=== PATIENT | female | born 1990 | race Caucasian/White ===

== ENCOUNTER → 2018-02-25 13:13 | Outpatient (CLI) | payer OTHER, MEDICAID, SELFPAY ==
[2018-02-25 13:53] LABS: Add Manual Diff / Slide Review NO; Basophils Percent Auto 0.4 % (0-2); Eosinophils Percent Auto 0.9 % (2-4); Hematocrit 35.1 % (36-46); Lymphocytes Percent Auto 22.5 % (25-40); Mean Corpuscular HGB Conc 34.2 % (30-36); Mean Corpuscular Hemoglobin 28.3 PG (26-34); Mean Corpuscular Volume 82.6 fL (80-100); Monocytes Percent Auto 8.4 % (3-14); Neutrophils Absolute Auto 4200 /uL (3000-5900); Neutrophils Percent Auto 67.8 % (50-75); Platelet Count 302 X10^3/uL (150-400); Red Blood Cell Count 4.25 X10^6/uL (4.0-5.2); White Blood Cell Count 6.2 X10^3/uL (4.5-11.0)
[2018-02-25 16:01] LABS: Hepatitis B Surface Antigen NEGATIVE s/c (NEGATIVE); Rubella Antibody IgG 10.8 IU/mL (>15)
[2018-02-25 16:09] LABS: HIV 1 and 2 Antibody NEGATIVE (NEGATIVE); Hep C Virus Ab w/Reflex Quant NEGATIVE s/c (NEGATIVE)
[2018-03-01 15:01] LABS: HSV 2 IGG AB 8.76 index (< 0.90); HSV1IGG < 0.90 index (< 0.90)
[2018-03-01 15:02] LABS: Varicella IgG Antibody < 135.00 Index (< 135.00)
[2018-03-07 09:11] LABS: Rapid Plasma Reagin NON REACTIVE
== END ==
PROVIDERS: Visit Provider Obstetrics & Gynecology
DX: O26.92 Pregnancy related conditions, unspecified, second trimester (principal); Z34.82 Encounter for supervision of other normal pregnancy, second trimester
CPT/HCPCS: 36415; 80055; 86695; 86696; 86703; 86787; 86803; 86850; 86900; 86901

== ENCOUNTER → 2018-06-16 14:47 | Outpatient (CLI) | payer OTHER, MEDICAID, SELFPAY ==
[2018-06-16 16:08] LABS: Hematocrit 28.1 % (36-46); Hemoglobin 9.1 g/dL (12.0-16.0)
[2018-06-16 16:36] LABS: GTT (PREG) 1 Hour PP 50gm Dose 84 mg/dL (76-139)
== END ==
PROVIDERS: Visit Provider Obstetrics & Gynecology
DX: Z34.82 Encounter for supervision of other normal pregnancy, second trimester (principal)
CPT/HCPCS: 36415; 82950; 85014; 85018

== ENCOUNTER → 2018-07-12 16:40 | Outpatient (CLI) | payer OTHER, MEDICAID, SELFPAY ==
--- NOTE | 2018-07-12 16:43 | DI.US.S_ITS ---
PROCEDURE: US OB >= 14 WEEKS FETUS INDICATIONS: ANATOMIC SURVEY 20 WEEK OUTSIDE/PRIOR DATING DATA: Last menstrual period (LMP): Not provided. LMP-based estimated date of delivery (BRANDIN): N./A.. First dating scan (date and location): 02/25/18. Estimated date of delivery (BRANDIN) from first dating scan: 09/06/18 TECHNIQUE: Real-time scanning was performed of the fetus, with image documentation and biometric measurements. Endovaginal scanning: No COMPARISON: [facility], , OB <= 14 WEEKS FETUS, 02/25/2018, 13:55. FINDINGS: General: A single living intrauterine gestation is present. Presentation: Vertex. Placenta: Placental position is anterior, without previa. Amniotic fluid index: 11.5 cm, normal range is 5-24 cm. heart rate: 153 beats per minute. Maternal cervical canal: 4.2 cm long. Normal lower limit is 2.5 cm. biometrics: Biparietal diameter: 33 weeks 3 days Head circumference: 34 weeks 5 days Abdominal circumference: 33 weeks 1 day Femur length: 32 weeks 4 days Estimated gestational age from initial scan: 32 weeks Composite gestational age from present scan: 33 weeks Estimated weight and percentile: 2127 g; 76 percentile Measurement variability for biometric dating: +/- 7 days from 14 weeks to 15 weeks 6 days gestation, +/- 10 days from 16 weeks to 21 weeks 6 days gestation, +/- 2 weeks from 22 weeks to 27 weeks 6 days gestation, +/- 3 weeks for 28 weeks gestation or later. weight reference: 4500 g or EFW >90/95% is considered macrosomia or large for gestational age. EFW <10% is small for gestational age. EFW 5% or less is considered intra-uterine growth restriction. Anatomic survey: Neuro: Ventricles are non-dilated at less than 10 mm. Cisterna magna is normal at 3-11 mm. Cerebellum is normal in size and morphology. Nuchal skin fold: Normal at less than 6 mm between 14-21 weeks gestational age. Face: Nose and lips, facial profile are normal. Spine: Not well-visualized. Heart: 4-chambered heart is present, with normal ventricular outflow tracts. Solitary left ventricular intracardiac focus. Diaphragm: Diaphragm is intact. Stomach: Left-sided stomach is present. Kidneys: No hydronephrosis. Normal is less than 5 mm in 2nd trimester, less than 7 mm in 3rd trimester. Cord: Not well-visualized. Bladder: Normal in size. Extremities: Lower extremity is not well-visualized. IMPRESSION: 1. Single living IUP redemonstrated and interval growth is normal. 2. Echogenic intracardiac focus: 1.4-1.8 fold likelihood of Down syndrome. If isolated finding, consider aneuploidy screening with cell-free DNA. If aneuploidy screen is negative, no further evaluation needed. 3. spine, cord insertion site and lower extremities not well-visualized. Followup recommended. Dictated by: Praveen BRUSH Interpreted: Alyssa Lundberg MD on 07/13/2018 at 8:05 Approved by: Alyssa Lundberg MD, PhD on 07/13/2018 at 14:36
== END ==
PROVIDERS: Visit Provider Obstetrics & Gynecology
DX: Z36.89 Encounter for other specified antenatal screening (principal); Z3A.33 33 weeks gestation of pregnancy
CPT/HCPCS: 76811

== ENCOUNTER → 2018-07-22 15:11 | Outpatient (CLI) | payer OTHER, MEDICAID, SELFPAY ==
[2018-08-02 08:36] LABS: Informaseq SEE SEPERATE REPORT
== END ==
PROVIDERS: Visit Provider Obstetrics & Gynecology
DX: Q90.9 Down syndrome, unspecified (principal); O28.3 Abnormal ultrasonic finding on antenatal screening of mother
CPT/HCPCS: 81507

== ENCOUNTER 2018-08-26 12:37 | Outpatient (CLI) | payer OTHER, MEDICAID, SELFPAY ==
[2018-08-26 13:04] LABS: Urine Amphetamines Negative (Negative); Urine Barbiturates Negative (Negative); Urine Benzodiazepines Positive (Negative); Urine Cocaine Negative (Negative); Urine MDMA Negative (Negative); Urine Methadone Negative (Negative); Urine Methamphetamines Negative (Negative); Urine Morphine/Opi cutoff 2000 Negative (Negative); Urine Oxycodone Negative (Negative); Urine Phencyclidine Negative (Negative); Urine Tetrahydrocannabinol Positive (Negative); Urine Tricyclic Antidepressant Negative (Negative)
== END 2018-08-26 14:10 | disposition home or self-care (01) ==
LOC: LABOR 14:17 → OB 08-29 10:04
PROVIDERS: Visit Provider Obstetrics & Gynecology
DX: Z34.90 Encounter for supervision of normal pregnancy, unspecified, unspecified trimester (principal)
CPT/HCPCS: 59025; 80305; G0378; G0379

== ENCOUNTER 2018-08-26 14:48 | Inpatient (IN) | payer OTHER, MEDICAID, SELFPAY ==
[2018-08-26 16:18] LABS: Add Manual Diff / Slide Review NO; Basophils Absolute Auto 0 /uL (0-100); Basophils Percent Auto 0.5 % (0-2); Eosinophils Absolute Auto 100 /uL (0-450); Eosinophils Percent Auto 1.8 % (2-4); Hematocrit 32.1 % (36-46); Hemoglobin 10.4 g/dL (12.0-16.0); Lymphocytes Absolute Auto 1900 /uL (1100-4500); Lymphocytes Percent Auto 24.1 % (25-40); Mean Corpuscular HGB Conc 32.5 % (30-36); Mean Corpuscular Hemoglobin 26.2 PG (26-34); Mean Corpuscular Volume 80.8 fL (80-100); Monocytes Absolute Auto 700 /uL (0-900); Monocytes Percent Auto 9.2 % (3-14); Neutrophils Absolute Auto 5000 /uL (1500-7000); Neutrophils Percent Auto 64.4 % (50-75); Platelet Count 280 X10^3/uL (150-400); Red Blood Cell Count 3.97 X10^6/uL (4.0-5.2); Red Cell Distribution Width 26.5 % (11.6-14.8); White Blood Cell Count 7.8 X10^3/uL (4.5-11.0)
[2018-08-26 16:46] LABS: Macrocytosis 1+; Polychromasia 1+
--- NOTE | 2018-08-26 16:47 | P.HPOB_ITS ---
OB HPI Date/Time Date of admission: 08/26/18 Date Patient Seen: 08/26/18 Time Patient Seen: 16:39 History of Present Condition Chief complaint: OBS : 6 Para: 3 Estimated Date of Delivery: 09/06/18 Estimated Gestational Age (weeks): 38 Narrative: Ashlie Lemus is a 27 year old female admitted in labor History of Present care: limited care (pt was admitted to a rehab unit), initiated at week # (12) and number of visits (5) Dating criteria: LMP confirmed by 1st trimester US Ultrasounds: abnormal US findings (intra cardiac focus) Obstetrical complications: none Medical complications: none Preadmission Labs Blood type: B (+) positive -: Antibody screen: negative, GBS status: negative, HBsAG: negative, HIV: negative, HSV 1: negative, HSV 2: positive and RPR/VDLR: negative -: Chlamydia screen: not detected and Gonorrhea screen: not detected -: Rubella: not immune and Varicella: not immune HCAB: negative Cell-free DNA: Normal 1 hr GTT: 84 Prior (ies) History: 10/09 female 7.7 9/ male 7.4 2/ male 7.4 Evaluation Evaluation Baseline heart rate: 135 Variability: Moderate (11-25) monitor accelerations: Present monitor decelerations: Absent Contraction Frequency (minutes): 3 Uterine Contraction Intensity: Moderate Category of Tracing: I Cervical dilation (cm): 6 Cervical effacement (%): 90 station: -2 Laboratory results: Laboratory Tests 08/26/18 15:30 WBC 7.8 RBC 3.97 L Hgb 10.4 L Hct 32.1 L MCV 80.8 MCH 26.2 MCHC 32.5 RDW 26.5 H Plt Count 280 Neut % (Auto) 64.4 Lymph % (Auto) 24.1 L [place] % (Auto) 9.2 Eos % (Auto) 1.8 L Baso % (Auto) 0.5 Neut # (Auto) 5000 Lymph # (Auto) 1900 [place] # (Auto) 700 Eos # (Auto) 100 Baso # (Auto) 0 Meds Home Medications Medication Instructions Recorded Confirmed Type sertraline [Zoloft] 50 mg PO QDAY #30 tab 03/06/16 Rx ibuprofen 600 mg PO Q6HP PRN #30 tab 07/16/16 Rx Allergies Allergy/AdvReac Type Severity Reaction Status Date / Time No Known Drug Allergies Allergy Verified 08/26/18 15:50 Review of Systems Review of Systems Patient denies leaking of fluid. She has contractions. Good movement. No signs or symptoms of preeclampsia. Patient denies symptoms of HSV All systems reviewed & are unremarkable except as noted in HPI and below Exam Vital Signs (past 8 hours): Blood pressure 128/58, temperature 97.6?, pulse 90 Narrative Exam Narrative: HEENT exam within normal limits. Lungs are clear to auscultation and percussion. Heart is regular rate and rhythm no S3-S4 or murmurs. Abdomen is soft, nontender. Abdomen is gravid. is vertex. Extremities without edema and nontender. Objective Labs Result Diagrams: 08/26/18 15:30 Labs: Laboratory Results - last 24 hr 08/26/18 15:30 WBC 7.8 RBC 3.97 L Hgb 10.4 L Hct 32.1 L MCV 80.8 MCH 26.2 MCHC 32.5 RDW 26.5 H Plt Count 280 Neut % (Auto) 64.4 Lymph % (Auto) 24.1 L [place]assen % (Auto) 9.2 Eos % (Auto) 1.8 L Baso % (Auto) 0.5 Neut # (Auto) 5000 Lymph # (Auto) 1900 [place] # (Auto) 700 Eos # (Auto) 100 Baso # (Auto) 0 Assessment and Plan Assessment and Plan Assessment and Plan narrative: 38 week gestation in a labor. Anticipate vaginal delivery
--- NOTE | 2018-08-26 17:12 | PM.OBPNLAB ---
Date/Time Date Patient Seen: 08/26/18 Time Patient Seen: 17:12 Pain Control Pain control: epidural Pelvic Exam Dilation (cm): 7 Effacement (%): 90 station: -2 Comments: AROMed thick meconium, no evidence of HSV outbreak Contractions Contraction intensity: Moderate Assessment and Plan Assessment: active labor
[2018-08-26 17:33] VITALS: BP 127/57
--- NOTE | 2018-08-26 19:03 | PM.OBPRVD ---
Delivery date: 08/26/18 Intrapartal events: None Cervical ripening method: none Delivery augmentation: pitocin Delivery monitor: external FHT and external uterine Route of delivery: L&D Laceration Description: None Estimated blood loss (mL): 100 Anesthesia type: Epidural Narrative: Patient arrived on Labor and delivery 6 cm dilated with contractions. She received Pitocin augmentation and an epidural catheter for pain control. She was AROMed for meconium-stained fluid. heart tones category 1 throughout labor. The patient delivered spontaneously over an intact perineum. The viable female infant was placed on maternal abdomen. After the cord stopped pulsating the cord was clamped, cut, and cord bloods obtained. the placenta delivered spontaneously, intact, with 3 vessels. There were no cervical, vaginal, or perineal tears. Both infant and mother doing well. [place] Baby 1: Infant gender: Female Presentation: vertex position: Right Occiput Anterior Placenta delivery description: Spontaneous cord vessel description: 3 Vessels score (1 min): 8 score (5 min): 9 Plan for aftercare: Routine care.
[2018-08-26] MEDS: IBUPROFEN 600 MG TABLET PO (23:02)
[2018-08-27 06:18] LABS: Basophils Absolute Auto 0 /uL (0-100); Basophils Percent Auto 0.3 % (0-2); Eosinophils Absolute Auto 200 /uL (0-450); Eosinophils Percent Auto 1.7 % (2-4); Hematocrit 29.5 % (36-46); Hemoglobin 9.7 g/dL (12.0-16.0); Lymphocytes Absolute Auto 2700 /uL (1100-4500); Lymphocytes Percent Auto 27.1 % (25-40); Mean Corpuscular Hemoglobin 26.9 PG (26-34); Mean Corpuscular Volume 81.4 fL (80-100); Monocytes Absolute Auto 1000 /uL (0-900); Monocytes Percent Auto 9.6 % (3-14); Neutrophils Absolute Auto 6200 /uL (1500-7000); Neutrophils Percent Auto 61.3 % (50-75); Platelet Count 202 X10^3/uL (150-400); Red Blood Cell Count 3.62 X10^6/uL (4.0-5.2)
[2018-08-27 06:32] LABS: Add Manual Diff / Slide Review SLIDE REVIEW
[2018-08-27 07:37] LABS: Anisocytosis 2+
[2018-08-27] MEDS: PRENATAL VIT,CALC/IRON/FOLIC 1 TABLET 1 TAB PO (08:28)
[2018-08-27] MEDS: FERROUS GLUCONATE 324 MG TABLET PO (08:28)
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
[2018-08-27] MEDS: IBUPROFEN 600 MG TABLET PO ×3 (09:26→21:55)
--- NOTE | 2018-08-27 15:24 | CM.SWNOTE ---
Social Work Note: Requested by Dr Alvarado to complete a social work consult for this 27 yo mom and baby boy Allan, born [birth year]. This GRATING MACHINE OPERATOR unable to assess today, but CPS report placed based on chart review and information provided by Dr Alvarado. JAILYN Snowden updated throughout the day. Report to w/e CPS line P# included this information; 27 yo mom Ashlie presents to for delivery by Dr Keenan, w/limited care and positive meth screen 3.14.19. Ashlie + for THC and Benzos upon presentation here. Ashlie has 3 other children, all w/ CPS involvement and open cases per Dr Alvarado. Ashlie lives w/maternal gma to these children, gma has custody. MONAE is in alf in [place], [place]. Baby's Meconium has been sent, results will not be back until next week, per Dr Alvarado. Baby boy is showing no signs or symptoms of w/d at this time. According to Sammy Monroy w/ CPS, Intake # [id number], this report will not screen in at this time, meaning report does not warrant immediate f/u from CPS. This GRATING MACHINE OPERATOR asks what support is available to this baby's physician, who has placed baby on a medical hold, and does not feel it is safe for baby to DC w/ mom w/o CPS support ? Sammy suggests another call to [facility] or [place] CPS office to inquire further about social work support OR it's possible after additional digging is performed, Ashlie and baby boy might screen in d/t prior CPS history. Relayed above to JAILYN Snowden. This GRATING MACHINE OPERATOR following over the w/e and will address above w/ Dr Alvarado Wednesday. Will also plan to assess safety plan for baby boy w/ mom and family. GENIE Watson
[2018-08-28] MEDS: IBUPROFEN 600 MG TABLET PO (05:52)
[2018-08-28] MEDS: DOCUSATE 250 MG CAPSULE PO (09:45)
[2018-08-28] MEDS: PRENATAL VIT,CALC/IRON/FOLIC 1 TABLET 1 TAB PO (09:45)
[2018-08-28] MEDS: FERROUS GLUCONATE 324 MG TABLET PO (09:48)
--- NOTE | 2018-08-28 10:37 | PM.OBDS.1 ---
Discharge Providers Date of admission: 08/26/18 14:48 Discharge Date: 08/28/18 Consults: 08/26/18 17:36 Consult to Respiratory Therapy Evaluate & Treat Comment: Physician Instructions: Evaluate and treat 08/26/18 22:29 Consult to Nickel Plant Operator Routine Comment: Consult to Doughnut Icer Machine Routine Comment: Discharge provider: Mari Keenan MD Summary Date Patient Seen: 08/28/18 Time Patient Seen: 10:37 Procedures: Epidural catheter, Pitocin augmentation of labor, vaginal delivery Hospital Course: Patient arrived on Labor and delivery in active labor. She had a spontaneous delivery of a viable female infant weighing 7 lb 12 oz. Both infant and mother did well . Due to the patient's history of drug use during disposition of the baby is waiting on CPS evaluation. Patient denies any signs or symptoms of preeclampsia. Blood pressure 128/75, pulse 98, temperature 98.3?. Abdomen is soft, nontender. Uterus is firm, at U, nontender. mild lochia. Extremities without edema nontender. Blood type is B positive and she is rubella nonimmune she will receive rubella vaccination prior to discharge. Peripartum Data Delivery Method: Natural Vaginal Laceration description: None Procedures: Epidural catheter, Pitocin augmentation of labor, vaginal delivery complications: none [place] 1: Gender: Female Disposition of : home Discharge Diagnosis (1) Spontaneous vaginal delivery: Status: Acute Problem Details: Routine care (2) Drug use during : Status: Acute Problem Details: CPS to be involved Status at Discharge Cognitive/behavioral status at discharge: oriented Overall status at discharge: patient is progressing back to baseline Time Spent with Patient Total time spent providing and/or coordinating discharge services: Less than 30 minutes Objective Labs Result Diagrams: 08/27/18 05:49 Discharge Plan Discharge Plan Patient Disposition: Home Discharge Med Rec/Prescriptions Prescriptions: New ibuprofen 600 mg Tablet 600 mg PO Q6HR PRN (Reason: Pain, Mild (1-3)) Qty: 30 RF: 0 docusate sodium 250 mg Capsule 250 mg PO DAILY Qty: 20 RF: 0 ferrous gluconate 324 mg (38 mg iron) Tablet 324 mg PO DAILY Qty: 60 RF: 0 Continued sertraline [Zoloft] 50 MG tablet 50 mg PO QDAY Qty: 30 RF: 3 Follow up/Referrals: Foist,Mari B, MD [Physician] - 1 Month ( exam, with me or Dr. Miller) Provider Discharge Instructions Diet: Regular Activity: nothing in vagina for 4 weeks Skin/Wound/Dressing Care Report to your healthcare provider any signs of infection, such as:: chills, fever and increased pain Discharge Data Attending Provider: Allyssa Miller Admit Date/Time: 08/26/18 14:48
[2018-08-28 11:48] VITALS: BP 127/57; PULSE 80; TEMP 36.4
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
== END 2018-08-28 11:30 | disposition home or self-care (01) | DRG 560 ==
PROVIDERS: Specialist; Admitting Provider Obstetrics & Gynecology; Visit Provider Obstetrics & Gynecology
DX: O77.0 Labor and delivery complicated by meconium in amniotic fluid (principal); Z3A.38 38 weeks gestation of pregnancy; Z37.0 Single live birth
CPT/HCPCS: 01967; 36415; 59025; 59050; 59409; 80305; 85025; 86850; 86900; 86901; G0379; J3010

== ENCOUNTER 2018-11-28 09:23 | Day surgery (SDC) | payer OTHER, MEDICAID, SELFPAY ==
[2018-11-11 10:26] VITALS: BMI 40.1
[2018-11-28] VITALS (11 sets, daily range): BP systolic 112–131; BP diastolic 58–75; PULSE 56–90; RESP 14–20; TEMP 36.3–36.7; O2SAT 96–100; BMI 40.1
[2018-11-28] MEDS: LACTATED RINGERS 1,000 ML 100 ML IV (09:53)
--- NOTE | 2018-11-28 10:45 | PM.HP.1 ---
History of Present Illness Date Patient Seen: 11/28/18 Time Patient Seen: 10:45 Chief complaint: 12331 Narrative: Patient is a 27-year-old 6 para 4 who presents for laparoscopic bilateral tubal ligation for permanent sterilization Patient History Social History household members: none Smoking Status: Smoker, status unknown Family & Social History Social History: household members none Tobacco & Substance use: Tobacco type cannabis/marijuana Smoking Status Smoker, status unknown Substance Use Type marijuana,methamphetamine Meds Home Medications Medication Instructions Recorded Confirmed Type ferrous gluconate 324 mg PO DAILY #60 tab 08/28/18 Rx sertraline 100 mg tablet 150 mg PO DAILY #45 tab 10/11/18 Rx aripiprazole 2 mg tablet 2 mg PO DAILY #30 tab 10/26/18 Rx hydroxyzine HCl 50 mg tablet 50 mg PO QID PRN 10/26/18 10/26/18 History Allergies Allergy/AdvReac Type Severity Reaction Status Date / Time No Known Drug Allergies Allergy Verified 08/26/18 15:50 Exam Vital Signs (past 8 hours): - 11/28/18 09:38 Temperature 97.3 F L Pulse Rate 64 Respiratory Rate 16 Blood Pressure 112/70 Pulse Oximetry 97 Oxygen Delivery Method Room Air Narrative Exam Narrative: HEENT: No thyromegaly, no anterior cervical or supraclavicular lymphadenopathy. Lungs:Clear to auscultation bilaterally, no wheezes. Cardiovascular: Regular rate and rhythm, no murmurs, rubs, or gallops. Abdomen: No scars. No hepatosplenomegaly. No masses palpable. External genitalia: Normal Vagina: Normal Cervix: Normal Bimanual exam: 6 Week size uterus. Mobile. Rectal: No masses. Assessment & Plan Assessment & Plan narrative: Assessment 27-year-old 6 para 4 desires permanent sterilization Plan: Laparoscopic bilateral tubal ligation with electrocautery The risks, benefits, and alternatives to the procedure were explained to the patient. The risks including bleeding, infection, injury to the bowel, bladder, or ureters. She understands these risks and agrees to proceed. A full par Q was held and consent form was signed Time Spent With Patient Time with patient: 15-24 minutes
--- NOTE | 2018-11-28 10:47 | PM.PREOP ---
Pre-operative Note Interval Note History & Physical reviewed/Exam performed by Physician: Yes Changes to H&P: No
--- NOTE | 2018-11-28 11:36 | SUR.OPER ---
Lithotomy on padded OR bed, head on pillow, arms secured on padded arm boards at <90 degrees abduction. Legs secured in padded yellow fins stirrups.
[2018-11-28] MEDS: BUPIVACAINE 0.5% W/ EPI (PF) VIAL 10 ML INJ (11:43)
[2018-11-28] MEDS: fentaNYL 100 MCG/2 ML INJ 25 MCG IV (12:14)
[2018-11-28] MEDS: HYDROCODONE/ACET 5/325 TABLET 1 TAB PO (12:17)
--- NOTE | 2018-11-28 21:18 | PM.GYNOP.1 ---
Operative Date/Time/Diagnoses Date of procedure: 11/28/18 Time of procedure: 11:30 Pre-op diagnosis: Desires permanent sterilization Post-op diagnosis: same Procedure: Procedures Operation Date: 11/28/18 10:45 Actual Procedures Side Surgeon p Laparoscopic Tubal Ligation with electrocautery Bilateral Allyssa Miller MD Indications: Multiparity Desires permanent sterilization Surgeon: Allyssa Miller Anesthesia Type: General Operative Notes Findings: Six week size anteverted uterus Normal tubes and ovaries Appendix not visualized Normal liver gallbladder Closure Type: primary Specimen(s): none Estimated blood loss (mL): 5 Blood products transfused: none Procedure in detail: After informed consent was obtained, the patient was taken to the operating room where she was placed in the dorsal supine position. After adequate general endotracheal anesthesia was achieved, she was placed in the dorsal lithotomy position, and prepped and draped in the usual sterile fashion. A time-out was performed. A bivalve speculum was placed into the vagina and the anterior lip of the cervix was grasped with a single-tooth tenaculum. The cervical os was sequentially dilated until the Zumi uterine manipulator could pass easily into the endometrial cavity. The single-tooth tenaculum was removed from the anterior lip of the cervix. The bivalve speculum was removed from the vagina. Attention was then turned to the abdomen where 6 cc of 0.5% Marcaine with epinephrine were injected in the umbilical fold. A 1 cm incision was made. The Veress needle was placed into the peritoneal cavity, and its placement confirmed by aspiration and drop test. The abdominal cavity was insufflated with 3.2 L of CO2. The Veress needle was removed, and a 12 mm trocar was placed without difficulty. The operative laparoscopic was placed through the umbilical incision. The tubes and ovaries were identified and were found to be normal. The right tube was carried out to the fimbriated end, 2/[address] to the distal and the tube was cauterized x3 with the Kleppinger. Blanching occurred. This was repeated on the patient's left tube. The liver and gallbladder were examined and were found to be normal. The appendix was not visualized. The instruments were removed from the abdomen. The CO2 was allowed to escape. The incision was repaired on the fascia with 0 Vicryl. The skin incision was closed with 4 0 undyed Vicryl in a subcuticular fashion. Steri-Strips, 2 x 2, and op site were placed over the umbilical incision. The Zumi uterine manipulator was removed from the uterus. Sponge, lap, and instrument counts were correct x2. The patient tolerated the procedure well, and was taken to PACU in stable condition. Complications: none Post-operative Condition: stable Disposition: PACU Plan for aftercare: Home after recovery
== END 2018-11-28 13:00 | disposition home or self-care (01) ==
PROVIDERS: Visit Provider Obstetrics & Gynecology
PROC: (CPT 58671; principal; 2018-11-28 10:45)
DX: Z30.2 Encounter for sterilization (principal)
CPT/HCPCS: 58670; J0330; J1100; J1885; J2250; J2405; J2704; J3010

== ENCOUNTER 2019-03-23 19:45 | Emergency (ER) | payer OTHER, MEDICAID, SELFPAY ==
[2019-03-23] VITALS (7 sets, daily range): BP systolic 106–115; BP diastolic 52–68; PULSE 79–88; RESP 16–20; TEMP 36.4–36.9; O2SAT 97–100
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
[2019-03-23] MEDS: ONDANSETRON 4 MG/2 ML INJ IV (20:09)
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
--- NOTE | 2019-03-23 20:27 | PC.NURSE ---
Pt arrived back from CT/XR with RN. Vitals WNL BP 110/56. Pt refusing to turn on her back, wants to stay on R or L side. reports nauseous. IM zofran given per JUL. No IV access obtained. pt with h/o IVDU and is difficult stick. Attempted multiple times by [address] Villagomez made aware and OK'd no IV at this time. Per Dr Villagomez no labs needed at this time. pt remains in C-collar for c/o cervical spine tenderness when palpated. awaiting results of CT. Friend in room. remains on cardiac monitoring, warmed room with warm blankets.
[2019-03-23] MEDS: HYDROMORPHONE 0.5 MG INJ IV (21:15)
--- NOTE | 2019-03-23 21:17 | PC.NURSE ---
CSpine cleared at 2054. collar removed. IV accessed obtained 20G L hand. unable to obtain blood. Lab called to draw. Pt given pain meds per JUL. Resting in bed with family at side. assisted with bedpan and urine obtained. Warm blankets provided.
[2019-03-23 21:45] LABS: Add Manual Diff / Slide Review NO; Basophils Absolute Auto 100 /uL (0-100); Basophils Percent Auto 0.3 % (0-2); Eosinophils Absolute Auto 100 /uL (0-450); Eosinophils Percent Auto 0.3 % (2-4); Hematocrit 39.5 % (36-46); Hemoglobin 13.4 g/dL (12.0-16.0); Lymphocytes Absolute Auto 1700 /uL (1100-4500); Lymphocytes Percent Auto 8.8 % (25-40); Mean Corpuscular HGB Conc 33.8 % (30-36); Mean Corpuscular Hemoglobin 29.6 PG (26-34); Mean Corpuscular Volume 87.5 fL (80-100); Monocytes Absolute Auto 900 /uL (0-900); Monocytes Percent Auto 4.8 % (3-14); Neutrophils Absolute Auto 16100 /uL (1500-7000); Neutrophils Percent Auto 85.8 % (50-75); Platelet Count 211 X10^3/uL (150-400); Red Blood Cell Count 4.51 X10^6/uL (4.0-5.2); Red Cell Distribution Width 13.3 % (11.6-14.8); White Blood Cell Count 18.8 X10^3/uL (4.5-11.0)
[2019-03-23 21:47] LABS: INR 0.8 (0.9-1.3); Prothrombin Time 9.5 SECONDS (10.1-12.7)
[2019-03-23 21:50] LABS: PTT Partial Thromboplastin Tim 22 SECONDS (26.4-36.2)
[2019-03-23 21:52] LABS: Blood Urea Nitrogen 15 mg/dL (7-17); Carbon Dioxide 32 mmol/L (22-32); Chloride 100 mmol/L (98-107); Estimated Glomerular Filt Rate > 60.0 mL/min (>60); Glucose 105 mg/dL (70-100); HEMOLYSIS 56 (0-50); Potassium 4.2 mmol/L (3.4-5.1); Sodium 141 mmol/L (137-145)
[2019-03-23 21:54] LABS: Pregnancy Test Serum,Qual Negative (Negative)
[2019-03-23] MEDS: HYDROMORPHONE 1 MG INJ IV (22:00)
[2019-03-23] MEDS: LIDOCAINE 1% W/EPI 3 ML SUBCUT (22:01)
== END 2019-03-23 22:23 | disposition short-term general hospital (02) ==
PROVIDERS: Emergency Provider Emergency Medicine
DX: S06.5X0A Traumatic subdural hemorrhage without loss of consciousness, initial encounter (principal); V89.2XXA Person injured in unspecified motor-vehicle accident, traffic, initial encounter
CPT/HCPCS: 12002; 36415; 70450; 71045; 72125; 73630; 80048; 84703; 85025; 85610; 85730; 93041; 96374; 96375; 96376; 99283; 99291; G0390; J1170; J2405

== ENCOUNTER 2019-03-25 19:01 | Emergency (ER) | payer OTHER, MEDICAID, SELFPAY ==
[2019-03-25 19:09] VITALS: BP 132/46; PULSE 64; RESP 16; TEMP 36.4; O2SAT 97; BMI 43.7
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
[2019-03-25] MEDS: ONDANSETRON 4 MG/2 ML INJ IV (19:45)
[2019-03-25] MEDS: ACETAMINOPHEN 325 MG TABLET 975 MG PO (20:08)
--- NOTE | 2019-03-25 20:11 | PC.NURSE ---
Patient medicated with Tylenol and Zofran. Patient is alert and oriented, speaking in full, complete sentences with staff and friend at bedside. Dr. Smith at bedside to discuss plan of care.
[2019-03-25 20:12] LABS: Bacteria Urine None Seen; RBC Urine None Seen (0-5/HPF)
[2019-03-25 20:14] LABS: Add Manual Diff / Slide Review NO; Basophils Absolute Auto 100 /uL (0-100); Basophils Percent Auto 0.8 % (0-2); Eosinophils Absolute Auto 100 /uL (0-450); Eosinophils Percent Auto 1.1 % (2-4); Hematocrit 39.4 % (36-46); Hemoglobin 13.3 g/dL (12.0-16.0); Lymphocytes Absolute Auto 2200 /uL (1100-4500); Lymphocytes Percent Auto 21.7 % (25-40); Mean Corpuscular HGB Conc 33.8 % (30-36); Mean Corpuscular Hemoglobin 29.6 PG (26-34); Mean Corpuscular Volume 87.7 fL (80-100); Monocytes Absolute Auto 700 /uL (0-900); Monocytes Percent Auto 6.6 % (3-14); Neutrophils Absolute Auto 6900 /uL (1500-7000); Neutrophils Percent Auto 69.8 % (50-75); Platelet Count 315 X10^3/uL (150-400); Red Blood Cell Count 4.49 X10^6/uL (4.0-5.2); Red Cell Distribution Width 13.4 % (11.6-14.8); White Blood Cell Count 9.9 X10^3/uL (4.5-11.0)
[2019-03-25 20:18] LABS: Appearance Urine UA CLEAR; Bilirubin Urine UA NEGATIVE (NEGATIVE); Color Urine UA YELLOW; Glucose Urine UA NEGATIVE (Negative); Ketones Urine UA NEGATIVE (NEGATIVE); Leukocyte Esterase Urine UA NEGATIVE (NEGATIVE); Nitrite Urine UA NEGATIVE (Negative); Occult Blood Urine UA NEGATIVE (Negative); Protein Urine UA NEGATIVE (Negative); Specific Gravity Urine UA <=1.005 (1.000-1.035); Urobilinogen Urine UA 0.2 E.U./dL (0.2)
[2019-03-25 20:20] VITALS: BP 110/72; PULSE 56; RESP 16; O2SAT 100
[2019-03-25 20:23] LABS: Blood Urea Nitrogen 4 mg/dL (7-17); Calcium 9.5 mg/dL (8.4-10.2); Carbon Dioxide 29 mmol/L (22-32); Chloride 107 mmol/L (98-107); Estimated Glomerular Filt Rate > 60.0 mL/min (>60); Glucose 107 mg/dL (70-100); HEMOLYSIS < 15 (0-50); Magnesium 2.2 mg/dL (1.6-2.3); Sodium 142 mmol/L (137-145)
[2019-03-25 20:25] LABS: Amorphous Sediment Urine 2+; Culture Indicated Urine Cult Not Indicated; Squamous Epithelial Cell Urine 1-5 /HPF (0-5/HPF); WBC Urine None Seen (0-5/HPF)
--- NOTE | 2019-03-25 20:30 | PC.NURSE ---
Patient drinking apple juice. Nausea resolved at this time. Warm blankets given, light dim. Family at bedside.
[2019-03-25 21:15] VITALS: BP 115/67; PULSE 65; RESP 16; TEMP 36.9; O2SAT 98
[2019-03-25 22:15] VITALS: BP 110/59; PULSE 65; RESP 16; O2SAT 98
[2019-03-25 23:16] VITALS: BP 115/59; PULSE 65; RESP 16; TEMP 36.8; O2SAT 100
--- NOTE | 2019-03-25 23:17 | PC.NURSE ---
Patient resting quietly, mostly sleeping. Mother at bedside. Pt with send out labs that have not resulted yet. Plan of care discussed with Dr. Smith and family. Pt to be admitted.
[2019-03-26 00:40] VITALS: BP 110/64; PULSE 56; RESP 16; TEMP 36.6; O2SAT 98
[2019-03-26 03:47] LABS: Osmolality, Serum 287
[2019-03-26 03:48] LABS: Osmolality Urine 58
== END 2019-03-26 00:41 | disposition home or self-care (01) ==
PROVIDERS: Emergency Provider Emergency Medicine
DX: R63.1 Polydipsia (principal); R51 Headache; S09.90XD Unspecified injury of head, subsequent encounter; V49.40XD Driver injured in collision with unspecified motor vehicles in traffic accident, subsequent encounter
CPT/HCPCS: 36415; 70450; 80048; 81001; 82962; 83735; 83930; 83935; 85025; 96374; 99283; 99284; J2405

== ENCOUNTER → 2019-03-28 16:32 | Outpatient (CLI) | payer OTHER, MEDICAID, SELFPAY ==
[2019-03-28 17:00] LABS: Hemoglobin 12.8 g/dL (12.0-16.0); Mean Corpuscular HGB Conc 33.7 % (30-36); Mean Corpuscular Hemoglobin 29.7 PG (26-34); Mean Corpuscular Volume 88.1 fL (80-100); Platelet Count 349 X10^3/uL (150-400); Red Blood Cell Count 4.31 X10^6/uL (4.0-5.2); Red Cell Distribution Width 13.3 % (11.6-14.8); White Blood Cell Count 8.8 X10^3/uL (4.5-11.0)
[2019-03-28 17:24] LABS: Alanine Aminotransferase 24 IU/L (9-52); Albumin 4.2 g/dL (3.5-5.0); Albumin Globulin Ratio 1.4 (1.0-2.8); Alkaline Phosphatase 64 U/L (38-126); Aspartate Aminotransferase 27 IU/L (14-36); BUN Creatinine Ratio 17.5 (6-22); Bilirubin Total 0.4 mg/dL (0.2-1.3); Blood Urea Nitrogen 7 mg/dL (7-17); Calcium 9.4 mg/dL (8.4-10.2); Carbon Dioxide 31 mmol/L (22-32); Chloride 105 mmol/L (98-107); Estimated Glomerular Filt Rate > 60.0 mL/min (>60); Globulin 3.1 g/dL (1.7-4.1); Glucose 91 mg/dL (70-100); HEMOLYSIS 27 (0-50); Potassium 4.5 mmol/L (3.4-5.1); Sodium 142 mmol/L (137-145); Total Protein 7.3 g/dL (6.3-8.2)
[2019-03-30 16:52] LABS: Osmolality, Serum 292 mosm/kg (260-310)
[2019-03-30 16:53] LABS: Osmolality Urine 102 mOsm/kg (50-1200)
== END ==
PROVIDERS: Family Provider Nurse Practitioner Family; PCP Nurse Practitioner Family; Visit Provider Hospitalist
DX: Z00.00 Encounter for general adult medical examination without abnormal findings (principal); R63.1 Polydipsia
CPT/HCPCS: 36415; 80053; 83930; 83935; 85027

== ENCOUNTER 2019-03-31 18:05 | Emergency (ER) | payer OTHER, MEDICAID, SELFPAY ==
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
[2019-03-31 18:18] VITALS: PULSE 88; RESP 18; TEMP 36.5; O2SAT 98
--- NOTE | 2019-03-31 20:40 | DI.RAD.S_ITS ---
PROCEDURE: XR FOOT LT MIN 3V INDICATIONS: continuing L foot pain, initial xray neg about 8 days ago TECHNIQUE: 3 views of the foot were acquired. COMPARISON: [facility], , XR FOOT LT MIN 3V, 03/23/2019, 20:31. FINDINGS: Bones: No fractures or dislocations. No suspicious bony lesions. Soft tissues: No tibiotalar joint effusion. Achilles tendon appears normal. IMPRESSION: No acute osseous abnormality. Dictated by: Dashawn Matt M.D. on 03/31/2019 at 21:05 Approved by: Dashawn Matt M.D. on 03/31/2019 at 21:05
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
[2019-03-31] MEDS: ACETAMINOPHEN 325 MG TABLET 975 MG PO (21:17)
[2019-03-31] MEDS: ONDANSETRON 4 MG ODT PREPACK 1 BOTTLE MISC (21:48)
[2019-03-31 21:49] VITALS: BP 105/86; PULSE 91; O2SAT 98
== END 2019-03-31 21:51 | disposition home or self-care (01) ==
PROVIDERS: Emergency Provider Nurse Practitioner Family; Family Provider Nurse Practitioner Family; PCP Nurse Practitioner Family
DX: F07.81 Postconcussional syndrome (principal); R07.89 Other chest pain; M79.672 Pain in left foot; R41.3 Other amnesia; R51 Headache
CPT/HCPCS: 29540; 70450; 73630; 99282; 99284

== ENCOUNTER → 2019-04-05 11:44 | Outpatient (CLI) | payer OTHER, MEDICAID, SELFPAY ==
[2019-04-05 11:55] LABS: Bacteria Urine None Seen; WBC Urine None Seen (0-5/HPF)
[2019-04-05 12:35] LABS: Add Manual Diff / Slide Review NO; Basophils Absolute Auto 0 /uL (0-100); Basophils Percent Auto 0.5 % (0-2); Eosinophils Absolute Auto 200 /uL (0-450); Eosinophils Percent Auto 2.6 % (2-4); Hematocrit 38.5 % (36-46); Hemoglobin 12.9 g/dL (12.0-16.0); Lymphocytes Absolute Auto 2800 /uL (1100-4500); Mean Corpuscular HGB Conc 33.4 % (30-36); Mean Corpuscular Hemoglobin 29.8 PG (26-34); Mean Corpuscular Volume 89.1 fL (80-100); Monocytes Absolute Auto 600 /uL (0-900); Monocytes Percent Auto 6.7 % (3-14); Neutrophils Absolute Auto 5700 /uL (1500-7000); Neutrophils Percent Auto 60.2 % (50-75); Platelet Count 352 X10^3/uL (150-400); Red Blood Cell Count 4.32 X10^6/uL (4.0-5.2); Red Cell Distribution Width 14.5 % (11.6-14.8); White Blood Cell Count 9.5 X10^3/uL (4.5-11.0)
[2019-04-05 12:50] LABS: Alanine Aminotransferase 47 IU/L (<35); Albumin 4.7 g/dL (3.5-5.0); Albumin Globulin Ratio 1.4 (1.0-2.8); Alkaline Phosphatase 68 U/L (38-126); Aspartate Aminotransferase 40 IU/L (14-36); Bilirubin Total 0.4 mg/dL (0.2-1.3); Blood Urea Nitrogen 9 mg/dL (7-17); Carbon Dioxide 31 mmol/L (22-32); Chloride 104 mmol/L (98-107); Estimated Glomerular Filt Rate > 60.0 mL/min (>60); Globulin 3.3 g/dL (1.7-4.1); Glucose 92 mg/dL (70-100); HEMOLYSIS < 15 (0-50); Potassium 4.4 mmol/L (3.4-5.1); Sodium 144 mmol/L (137-145)
[2019-04-05 13:03] LABS: Prolactin 8.8 ng/mL (3.0-18.6)
[2019-04-05 13:07] LABS: Appearance Urine UA CLEAR; Bilirubin Urine UA NEGATIVE (NEGATIVE); Color Urine UA YELLOW; Glucose Urine UA NEGATIVE (Negative); Ketones Urine UA NEGATIVE (NEGATIVE); Leukocyte Esterase Urine UA NEGATIVE (NEGATIVE); Nitrite Urine UA NEGATIVE (Negative); Occult Blood Urine UA TRACE-LYSED (Negative); Protein Urine UA NEGATIVE (Negative); Specific Gravity Urine UA <=1.005 (1.000-1.035); Urobilinogen Urine UA 0.2 E.U./dL (0.2)
[2019-04-05 13:14] LABS: Culture Indicated Urine Cult Not Indicated; RBC Urine None Seen (0-5/HPF); Urine Comments Microscopic Normal
[2019-04-05 13:37] LABS: TSH w/ Reflex to FT4 1.56 uIU/mL (0.47-4.68)
[2019-04-07 16:33] LABS: Osmolality, Serum 292 mosm/kg (260-310)
== END ==
PROVIDERS: PCP Nurse Practitioner Family; Visit Provider Nurse Practitioner Family
DX: Z00.00 Encounter for general adult medical examination without abnormal findings (principal); R63.1 Polydipsia
CPT/HCPCS: 36415; 80053; 81001; 83930; 84146; 84443; 85025

== ENCOUNTER → 2019-04-20 16:18 | Outpatient (CLI) | payer OTHER, MEDICAID, SELFPAY ==
--- NOTE | 2019-04-20 16:19 | DI.MRI.S_ITS ---
PROCEDURE: MR BRAIN (PITUITARY) WWO CON INDICATIONS: post concussive symptoms, polydipsia TECHNIQUE: Noncontrast sagittal and axial FLAIR, axial gradient echo, axial diffusion and ADC through the brain. Thin-slice sagittal and coronal T1 spin echo, coronal T2 fast spin echo through the pituitary. After the administration contrast, optional dynamic coronal T1 spin echo, thin-slice coronal and sagittal T1 spin echo images through the pituitary fossa; axial T1 spin echo with fat saturation through the brain. COMPARISON: None. FINDINGS: Image quality: Excellent. Pituitary Gland: There appears to be homogenous symmetric pituitary parenchymal enhancement. No discrete focus of delayed enhancement identified on dynamic post contrast pulse sequences. No deviation of the pituitary stalk. No displacement of the optic chiasm. The cavernous sinuses appear grossly unremarkable. CSF Spaces: Ventricles are normal in size and shape. Basal cisterns are patent. No extra-axial fluid collections. Brain: No intracranial bleeds or mass effects. No abnormal intracranial enhancement. Toussaint-white matter interface is intact. Diffusion weighted images demonstrate no acute ischemic insults. Brainstem is normal. Normal intravascular flow voids are present. There is normal appearance of the internal auditory canals and cerebellopontine angles. No discrete IAC mass. No abnormal enhancement in this region Skull and face: Calvarial marrow is normal in signal. Orbits appear normal. Sinuses: Sinuses and mastoids are clear. IMPRESSION: Negative examination. No evidence of pituitary mass. Normal appearance of the IACs. No abnormal enhancement Dictated by: Sudarshan Bustillo M.D. on 04/21/2019 at 16:06 Approved by: Sudarshan Bustillo M.D. on 04/21/2019 at 16:20
== END ==
PROVIDERS: PCP Nurse Practitioner Family; Visit Provider Nurse Practitioner Family
DX: F07.81 Postconcussional syndrome (principal); R63.1 Polydipsia; Z86.79 Personal history of other diseases of the circulatory system
CPT/HCPCS: 70553; A9579

== ENCOUNTER → 2019-04-28 11:03 | Outpatient (CLI) | payer OTHER, MEDICAID, SELFPAY ==
[2019-04-28 12:25] LABS: Alanine Aminotransferase 23 IU/L (<35); Albumin Globulin Ratio 1.2 (1.0-2.8); Alkaline Phosphatase 94 U/L (38-126); Aspartate Aminotransferase 31 IU/L (14-36); Bilirubin Total 0.7 mg/dL (0.2-1.3); Blood Urea Nitrogen 12 mg/dL (7-17); Calcium 9.8 mg/dL (8.4-10.2); Carbon Dioxide 27 mmol/L (22-32); Chloride 105 mmol/L (98-107); Estimated Glomerular Filt Rate > 60.0 mL/min (>60); Globulin 4.2 g/dL (1.7-4.1); Glucose 71 mg/dL (70-100); Potassium 4.4 mmol/L (3.4-5.1); Sodium 142 mmol/L (137-145); Total Protein 9.2 g/dL (6.3-8.2)
[2019-04-28 12:27] LABS: HEMOLYSIS 56 (0-50)
== END ==
PROVIDERS: PCP Nurse Practitioner Family; Visit Provider Nurse Practitioner Family
DX: R63.1 Polydipsia (principal); E23.2 Diabetes insipidus
CPT/HCPCS: 36415; 80053

== ENCOUNTER 2019-08-18 18:27 | Emergency (ER) | payer OTHER, MEDICAID, SELFPAY ==
[2019-08-18 18:30] VITALS: BP 131/61; PULSE 100; RESP 15; TEMP 38; O2SAT 100; BMI 46.3
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
--- NOTE | 2019-08-18 19:24 | DI.RAD.S_ITS ---
PROCEDURE: XR ELBOW RT MIN 3V INDICATIONS: soft tissue xray for FB right antecubital fossa TECHNIQUE: 3 views of the elbow were acquired. COMPARISON: None. FINDINGS: Bones: No fractures or dislocations. No suspicious bony lesions. Soft tissues: No elbow joint effusion. No suspicious soft tissue calcifications. No radiopaque soft tissue foreign bodies identified. IMPRESSION: No radiopaque soft tissue foreign body identified in the right elbow. No acute fracture or dislocation. Dictated by: Sammy Dan M.D. on 08/18/2019 at 19:48 Approved by: Sammy Dan M.D. on 08/18/2019 at 19:49
[2019-08-18] MEDS: CEFAZOLIN 1 GM/50 ML FROZ.PIGGY IV (20:08)
[2019-08-18] MEDS: LIDOCAINE 1% W/EPI 10 ML INJ (20:09)
[2019-08-18 20:18] LABS: Add Manual Diff / Slide Review NO; Basophils Absolute Auto 100 /uL (0-100); Basophils Percent Auto 0.5 % (0-2); Eosinophils Absolute Auto 200 /uL (0-450); Eosinophils Percent Auto 1.2 % (2-4); Hematocrit 37.5 % (36-46); Hemoglobin 12.4 g/dL (12.0-16.0); Lymphocytes Absolute Auto 2000 /uL (1100-4500); Lymphocytes Percent Auto 12.7 % (25-40); Mean Corpuscular HGB Conc 32.9 % (30-36); Mean Corpuscular Hemoglobin 28.1 PG (26-34); Mean Corpuscular Volume 85.3 fL (80-100); Monocytes Absolute Auto 1000 /uL (0-900); Monocytes Percent Auto 6.3 % (3-14); Neutrophils Absolute Auto 12400 /uL (1500-7000); Neutrophils Percent Auto 79.3 % (50-75); Platelet Count 342 X10^3/uL (150-400); Red Cell Distribution Width 13.4 % (11.6-14.8); White Blood Cell Count 15.6 X10^3/uL (4.5-11.0)
[2019-08-18 20:27] LABS: Alanine Aminotransferase 14 IU/L (<35); Albumin 4.1 g/dL (3.5-5.0); Albumin Globulin Ratio 1.1 (1.0-2.8); Alkaline Phosphatase 72 U/L (38-126); Aspartate Aminotransferase 26 IU/L (14-36); BUN Creatinine Ratio 12.5 (6-22); Bilirubin Total 0.4 mg/dL (0.2-1.3); Blood Urea Nitrogen 5 mg/dL (7-17); Calcium 9.6 mg/dL (8.4-10.2); Carbon Dioxide 24 mmol/L (22-32); Chloride 105 mmol/L (98-107); Estimated Glomerular Filt Rate > 60.0 mL/min (>60); Globulin 3.8 g/dL (1.7-4.1); Glucose 107 mg/dL (70-100); HEMOLYSIS < 15 (0-50); Lactate (Lactic Acid) 1.1 mmol/L (0.7-2.1); Potassium 4.3 mmol/L (3.4-5.1); Sodium 137 mmol/L (137-145); Total Protein 7.9 g/dL (6.3-8.2)
[2019-08-18] MEDS: IBUPROFEN 400 MG TABLET PO (21:14)
[2019-08-18 21:15] VITALS: BP 132/60; PULSE 98; RESP 16; O2SAT 99
--- NOTE | 2019-08-19 17:27 | PC.NURSE ---
recieved call from lab +strep a, wound culture +, sensitivity to follow. dr [place] made aware, no new order pt already has rx for keflex and bactrim
== END 2019-08-18 21:21 | disposition home or self-care (01) ==
PROVIDERS: Emergency Provider Emergency Medicine; PCP Nurse Practitioner Family
DX: L02.413 Cutaneous abscess of right upper limb (principal); L03.113 Cellulitis of right upper limb; F15.10 Other stimulant abuse, uncomplicated; E11.9 Type 2 diabetes mellitus without complications
CPT/HCPCS: 10060; 36415; 73080; 80053; 83605; 85025; 87070; 87075; 87077; 87147; 87186; 87205; 96365; 99284

== ENCOUNTER 2019-08-20 12:32 | Emergency (ER) | payer OTHER, MEDICAID, SELFPAY ==
[2019-08-20 13:03] VITALS: BP 118/91; PULSE 81; RESP 18; TEMP 36.6; O2SAT 96
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
[2019-08-20] MEDS: DOXYCYCLINE HYCLATE 100 MG TABLET PO (13:37)
--- NOTE | 2019-08-20 13:47 | PC.NURSE ---
Dressing removed from right arm. States presents to the ED for repacking of wound & dressing change.Has not started taking antibiotic. States her father dropped it off but has not picked it up due to it being a Wednesday & the Pharmacy is closed. Small amt purulent drainage on discarded drsg. CMS good to right hand.Pt stable at this time.Painfree.
--- NOTE | 2019-08-20 13:52 | PC.NURSE ---
right arm dressing applied, tolerated well.
== END 2019-08-20 13:52 | disposition home or self-care (01) ==
PROVIDERS: Emergency Provider Nurse Practitioner; PCP Nurse Practitioner Family
DX: L03.113 Cellulitis of right upper limb (principal); L02.413 Cutaneous abscess of right upper limb
CPT/HCPCS: 99283

== ENCOUNTER 2021-04-06 11:05 | Emergency (ER) | payer OTHER, MEDICAID, SELFPAY ==
[2021-04-06 10:58] VITALS: BP 110/57; PULSE 63; RESP 18; TEMP 36.7; O2SAT 99; BMI 31.6
[2021-04-06] MEDS: SODIUM CHLORIDE 0.9% 1,000 ML 1000 ML IV (12:05)
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
--- NOTE | 2021-04-06 12:28 | DI.RAD.S_ITS ---
PROCEDURE: XR CHEST 1V INDICATIONS: COVID TECHNIQUE: One view of the chest was acquired. COMPARISON: [facility], CR, XR CHEST 1V, 03/23/2019, 19:53. FINDINGS: Surgical changes and devices: None. Lungs and pleura: Minimal bilateral interstitial infiltrates are seen. Low lung volumes are noted. This causes a crowded appearance to the lung markings and limits evaluation. No pleural effusions or pneumothorax. Mediastinum: Mediastinal contours appear normal. Heart size is normal. Bones and chest wall: No suspicious bony lesions. Overlying soft tissues appear unremarkable. IMPRESSION: Minimal bilateral interstitial infiltrates are seen, with low lung volumes, which likely represents early COVID pneumonia, given the history. Dictated by: Los Ramirez M.D. on 04/06/2021 at 12:17 Approved by: Los Ramirez M.D. on 04/06/2021 at 12:18
[2021-04-06 12:52] VITALS: BP 110/57; PULSE 62
[2021-04-06] MEDS: cloNIDine 0.1 MG TABLET PO (12:52)
[2021-04-06 14:14] LABS: Add Manual Diff / Slide Review NO; Basophils Absolute Auto 0 /uL (0-100); Basophils Percent Auto 0.5 % (0-2); Eosinophils Absolute Auto 0 /uL (0-450); Eosinophils Percent Auto 0.5 % (2-4); Hematocrit 34.9 % (36-46); Hemoglobin 11.7 g/dL (12.0-16.0); Lymphocytes Absolute Auto 1600 /uL (1100-4500); Lymphocytes Percent Auto 26.5 % (25-40); Mean Corpuscular HGB Conc 33.4 % (30-36); Mean Corpuscular Hemoglobin 27.1 PG (26-34); Mean Corpuscular Volume 81.1 fL (80-100); Monocytes Absolute Auto 500 /uL (0-900); Monocytes Percent Auto 8.2 % (3-14); Neutrophils Absolute Auto 3900 /uL (1500-7000); Neutrophils Percent Auto 64.3 % (50-75); Platelet Count 337 X10^3/uL (150-400)
[2021-04-06 14:33] LABS: Creatine Kinase 37 U/L (30-135)
[2021-04-06 14:39] LABS: Alanine Aminotransferase 19 IU/L (<35); Albumin 4.2 g/dL (3.5-5.0); Albumin Globulin Ratio 1.1 (1.0-2.8); Alkaline Phosphatase 65 U/L (38-126); Aspartate Aminotransferase 32 IU/L (14-36); BUN Creatinine Ratio 15.8 (6-22); Bilirubin Total 0.5 mg/dL (0.2-1.3); Blood Urea Nitrogen 6 mg/dL (7-17); Calcium 9.4 mg/dL (8.4-10.2); Carbon Dioxide 19 mmol/L (22-32); Chloride 106 mmol/L (98-107); Estimated Glomerular Filt Rate > 60.0 mL/min (>60); Glucose 106 mg/dL (70-100); HEMOLYSIS 42 (0-50); Lipase 58 U/L (23-300); Potassium 3.9 mmol/L (3.4-5.1); Sodium 135 mmol/L (137-145); Total Protein 8.2 g/dL (6.3-8.2)
[2021-04-06 14:45] LABS: Troponin I < 0.012 ng/mL (0.01-0.034)
[2021-04-06 15:08] VITALS: BP 108/55; PULSE 75; RESP 20; TEMP 36.9; O2SAT 100
== END 2021-04-06 15:10 | disposition home or self-care (01) ==
PROVIDERS: Emergency Provider Emergency Medicine; PCP Nurse Practitioner Family
DX: U07.1 COVID-19 (principal); F11.23 Opioid dependence with withdrawal; R07.9 Chest pain, unspecified
CPT/HCPCS: 71045; 80053; 81003; 81025; 82550; 83690; 84484; 85025; 93005; 93010; 96360; 99284

== ENCOUNTER 2021-04-07 04:28 | Emergency (ER) | payer OTHER, MEDICAID, SELFPAY ==
[2021-04-07 04:28] VITALS: BP 110/56; PULSE 68; RESP 16; TEMP 36.5; O2SAT 100; BMI 28.8
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
[2021-04-07] MEDS: ONDANSETRON 4 MG ODT SL (05:14)
[2021-04-07] MEDS: BUPRENORPHINE/NALOXONE 8MG/2MG 1 TAB SL (05:20)
--- NOTE | 2021-04-07 05:23 | PC.NURSE ---
Patient reports going through withdrawl from narcotics percocet and fentanyl Patient seen and discharged yesterday, felt ok for a bit and then started having diarrhea. reports nausea is worse as well.
[2021-04-07 06:22] VITALS: PULSE 47; O2SAT 97
[2021-04-07 06:30] VITALS: PULSE 67; O2SAT 96
[2021-04-07 07:00] VITALS: PULSE 47; O2SAT 96
[2021-04-07 07:30] VITALS: PULSE 48; O2SAT 97
[2021-04-07 07:42] LABS: COVID19 -Nasal RAPID POSITIVE (Negative)
[2021-04-07 08:00] VITALS: PULSE 50; O2SAT 96
== END 2021-04-07 08:25 | disposition home or self-care (01) ==
PROVIDERS: Emergency Provider Emergency Medicine; PCP Nurse Practitioner Family
DX: U07.1 COVID-19 (principal); F11.93 Opioid use, unspecified with withdrawal
CPT/HCPCS: 87635; 99283; C9803

== ENCOUNTER 2021-05-03 16:38 | Emergency (ER) | payer OTHER, MEDICAID, SELFPAY ==
[2021-05-03] VITALS (9 sets, daily range): BP systolic 103–115; BP diastolic 52–57; PULSE 65–83; RESP 17; TEMP 37.1; O2SAT 97–99
--- NOTE | 2021-05-03 17:10 | DI.RAD.S_ITS ---
PROCEDURE: XR ACUTE ABDOMEN SERIES INDICATIONS: Abdominal pain TECHNIQUE: One view chest and 3 views of the abdomen were acquired. COMPARISON: [facility], CR, XR CHEST 1V, 04/06/2021, 12:58. FINDINGS: Surgical changes and devices: None. Chest: Lungs are clear. Heart size is normal. No pleural effusions. No pneumoperitoneum. Abdomen: Bowel gas pattern is normal. No suspicious calcifications. Bones: No suspicious bony lesions. IMPRESSION: 1. No acute intra-abdominal radiographic abnormality. Dictated by: Brian Manley M.D. on 05/03/2021 at 16:58 Approved by: Brian Manley M.D. on 05/03/2021 at 16:59
[2021-05-03 17:18] LABS: COVID19 -Nasal RAPID Negative (Negative)
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
--- NOTE | 2021-05-03 18:18 | DI.US.S_ITS ---
PROCEDURE: US ABDOMEN LIMITED INDICATIONS: EPIGASTRIC PAIN TECHNIQUE: Real-time focused scanning was performed of the abdomen, with image documentation. COMPARISON: None. FINDINGS: Liver: No significant abnormality. Gallbladder: Contracted. No gallbladder wall thickening, pericholecystic fluid, or shadowing gallstones. CBD: 3.7 mm. Pancreas: The visualized portions appear normal. IMPRESSION: No significant abnormality. Dictated by: Kevin Santos M.D. on 05/03/2021 at 19:25 Approved by: Kevin Santos M.D. on 05/03/2021 at 19:27
[2021-05-03 18:26] LABS: Add Manual Diff / Slide Review NO; Basophils Absolute Auto 100 /uL (0-100); Basophils Percent Auto 0.8 % (0-2); Eosinophils Absolute Auto 300 /uL (0-450); Eosinophils Percent Auto 3.5 % (2-4); Hematocrit 34.3 % (36-46); Hemoglobin 11.7 g/dL (12.0-16.0); Lymphocytes Absolute Auto 2200 /uL (1100-4500); Lymphocytes Percent Auto 29.6 % (25-40); Mean Corpuscular HGB Conc 34.1 % (30-36); Mean Corpuscular Hemoglobin 28.5 PG (26-34); Mean Corpuscular Volume 83.5 fL (80-100); Monocytes Absolute Auto 700 /uL (0-900); Monocytes Percent Auto 9.2 % (3-14); Neutrophils Absolute Auto 4200 /uL (1500-7000); Neutrophils Percent Auto 56.9 % (50-75); Platelet Count 325 X10^3/uL (150-400); Red Blood Cell Count 4.11 X10^6/uL (4.0-5.2); Red Cell Distribution Width 14.1 % (11.6-14.8); UR Morphine/Opiate cutoff 300 Negative (Negative); Ur Creatinine Normal (Normal); Ur Specific Gravity Normal (Normal); Urine Amphetamines Negative (Negative); Urine Barbiturates Negative (Negative); Urine Benzodiazepines Negative (Negative); Urine Cocaine Negative (Negative); Urine MDMA Negative (Negative); Urine Methadone Negative (Negative); Urine Methamphetamines Negative (Negative); Urine Oxycodone Negative (Negative); Urine Phencyclidine Negative (Negative); Urine Tetrahydrocannabinol Negative (Negative); Urine Tricyclic Antidepressant Negative (Negative); Urine pH Normal (Normal); White Blood Cell Count 7.3 X10^3/uL (4.5-11.0)
[2021-05-03 18:43] LABS: Alanine Aminotransferase 11 IU/L (<35); Albumin 4.1 g/dL (3.5-5.0); Albumin Globulin Ratio 1.1 (1.0-2.8); Alkaline Phosphatase 55 U/L (38-126); Aspartate Aminotransferase 27 IU/L (14-36); BUN Creatinine Ratio 9.5 (6-22); Bilirubin Total 0.2 mg/dL (0.2-1.3); Blood Urea Nitrogen 6 mg/dL (7-17); Carbon Dioxide 27 mmol/L (22-32); Chloride 107 mmol/L (98-107); Estimated Glomerular Filt Rate > 60.0 mL/min (>60); Globulin 3.8 g/dL (1.7-4.1); Glucose 83 mg/dL (70-100); HEMOLYSIS < 15 (0-50); Lipase 85 U/L (23-300); Potassium 4.4 mmol/L (3.4-5.1); Sodium 141 mmol/L (137-145); Total Protein 7.9 g/dL (6.3-8.2)
[2021-05-03] MEDS: MAG HYDROX/ALUMINUM/SIMETH SUS 20 ML, LIDOCAINE VISCOUS 2% 15 ML PO (18:45)
[2021-05-03] MEDS: LACTATED RINGERS 1,000 ML 1000 ML IV (18:45)
[2021-05-03] MEDS: PANTOPRAZOLE 40 MG VIAL IV (18:45)
[2021-05-03] MEDS: HYDROCODONE/ACET 5/325 PREPACK 1 BOTTLE MISC (19:45)
[2021-05-03] MEDS: ONDANSETRON 4 MG ODT PREPACK 1 BOTTLE MISC (19:45)
== END 2021-05-03 19:52 | disposition home or self-care (01) ==
PROVIDERS: Emergency Medicine; Emergency Provider Emergency Medicine; PCP Nurse Practitioner Family
DX: R10.10 Upper abdominal pain, unspecified (principal); Z20.822 Contact with and (suspected) exposure to COVID-19; Z86.16 Personal history of COVID-19
CPT/HCPCS: 36415; 74022; 76705; 80053; 80305; 81003; 81025; 83690; 85025; 87635; 96361; 96374; 99284; C9803; C9113

== ENCOUNTER → 2022-06-19 16:39 | Outpatient (CLI) | payer OTHER, MEDICAID, SELFPAY ==
[2022-06-19 17:19] LABS: Add Manual Diff / Slide Review NO; Basophils Absolute Auto 100 /uL (0-100); Basophils Percent Auto 0.8 % (0-2); Eosinophils Absolute Auto 100 /uL (0-450); Eosinophils Percent Auto 1.4 % (2-4); Hematocrit 36.1 % (36-46); Hemoglobin 12.2 g/dL (12.0-16.0); Lymphocytes Absolute Auto 2600 /uL (1100-4500); Lymphocytes Percent Auto 26.9 % (25-40); Mean Corpuscular HGB Conc 33.8 % (30-36); Mean Corpuscular Volume 85.8 fL (80-100); Monocytes Absolute Auto 700 /uL (0-900); Monocytes Percent Auto 6.9 % (3-14); Neutrophils Absolute Auto 6100 /uL (1500-7000); Platelet Count 338 X10^3/uL (150-400); Red Blood Cell Count 4.21 X10^6/uL (4.0-5.2); Red Cell Distribution Width 13.3 % (11.6-14.8); White Blood Cell Count 9.5 X10^3/uL (4.5-11.0)
[2022-06-19 17:28] LABS: Alanine Aminotransferase 17 IU/L (<35); Albumin 4.7 g/dL (3.5-5.0); Albumin Globulin Ratio 1.3 (1.0-2.8); Alkaline Phosphatase 67 U/L (38-126); Aspartate Aminotransferase 21 IU/L (14-36); Bilirubin Total 0.4 mg/dL (0.2-1.3); Blood Urea Nitrogen 12 mg/dL (7-17); Calcium 9.6 mg/dL (8.4-10.2); Carbon Dioxide 24 mmol/L (22-32); Chloride 104 mmol/L (98-107); Estimated Glomerular Filt Rate > 60 mL/min (>60); Globulin 3.5 g/dL (1.7-4.1); Glucose 88 mg/dL (70-100); HEMOLYSIS < 15 (0-50); Sodium 138 mmol/L (137-145); Total Protein 8.2 g/dL (6.3-8.2)
[2022-06-19 17:57] LABS: TSH w/ Reflex to FT4 1.12 uIU/mL (0.47-4.68)
== END ==
PROVIDERS: PCP Family Medicine; Referring Provider Family Medicine; Visit Provider Family Medicine
DX: F31.9 Bipolar disorder, unspecified (principal)
CPT/HCPCS: 36415; 80053; 84443; 85025

== ENCOUNTER 2024-07-07 11:32 | Emergency (ER) | payer OTHER, SELFPAY ==
[2024-07-07 11:47] VITALS: BP 139/63; PULSE 67; RESP 20; TEMP 37; O2SAT 100; BMI 33.5
[2024-07-07 16:02] LABS: Add Manual Diff / Slide Review NO; Basophils Absolute Auto 0 /uL (0-100); Basophils Percent Auto 0.4 % (0-2); Eosinophils Absolute Auto 100 /uL (0-450); Eosinophils Percent Auto 1.7 % (2-4); Hematocrit 36.8 % (36-46); Hemoglobin 12.4 g/dL (12.0-16.0); Lymphocytes Absolute Auto 3200 /uL (1100-4500); Lymphocytes Percent Auto 39.1 % (25-40); Mean Corpuscular HGB Conc 33.8 % (30-36); Mean Corpuscular Volume 85.9 fL (80-100); Monocytes Absolute Auto 500 /uL (0-900); Monocytes Percent Auto 6.3 % (3-14); Neutrophils Absolute Auto 4200 /uL (1500-7000); Neutrophils Percent Auto 52.5 % (50-75); Platelet Count 371 X10^3/uL (150-400); Red Blood Cell Count 4.29 X10^6/uL (4.0-5.2); Red Cell Distribution Width 12.8 % (11.6-14.8); White Blood Cell Count 8.1 X10^3/uL (4.5-11.0)
[2024-07-07 16:12] LABS: Alanine Aminotransferase 14 IU/L (<35); Albumin 4.5 g/dL (3.5-5.0); Albumin Globulin Ratio 1.3 (1.0-2.8); Alkaline Phosphatase 62 U/L (38-126); Aspartate Aminotransferase 21 IU/L (14-36); BUN Creatinine Ratio 18.2 (6-22); Bilirubin Total 0.4 mg/dL (0.2-1.3); Blood Urea Nitrogen 10 mg/dL (7-17); Calcium 9.3 mg/dL (8.4-10.2); Carbon Dioxide 23 mmol/L (22-32); Chloride 108 mmol/L (98-107); Estimated Glomerular Filt Rate > 60 mL/min (>60); Globulin 3.5 g/dL (1.7-4.1); Glucose 94 mg/dL (70-100); HEMOLYSIS < 15 (0-50); Lipase 65 U/L (23-300); Potassium 3.9 mmol/L (3.4-5.1); Sodium 138 mmol/L (137-145)
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
--- NOTE | 2024-07-07 16:32 | DI.US.S_ITS ---
PROCEDURE: US PELVIC COMPLETE INDICATIONS: PAIN. NEGATIVE URINE TEST. TECHNIQUE: Real-time scanning was performed of the pelvic organs, with image documentation. Additional endovaginal scanning was necessary due to incomplete visualization of the adnexal and endometrial structures by transabdominal scanning. COMPARISON: [facility], US, PELVIC COMPLETE, 04/19/2014, 11:00. FINDINGS: Uterus: Uterus is anteverted and normal in size at 8.5 x 5.6 x 4.3 cm. The myometrium is heterogeneous with Venetian blinds appearance of myometrium which may represent adenomyosis. The endometrium measures 10.4 mm combined thickness. No endometrial mass or fluid. Ovaries: The right ovary measures 3.7 x 1.6 x 1.8 cm, with a calculated ovarian volume of 5.6 cc. The left ovary measures 2.5 x 1.6 x 1.0 cm, with a calculated ovarian volume of 2.0 cc. The ovaries have a normal sonographic appearance. Less than 12 follicles can be seen in each ovary. No adnexal masses are seen. Normal arterial and venous flow is seen in right ovary on color Doppler images. Normal venous flow is seen in left ovary. Arterial flow is not definitively seen secondary to overlying bowel gas. Other: No pathologic free abdominal or pelvic fluid. IMPRESSION: 1. Slightly enlarged uterus with mildly heterogeneous myometrial echotexture and Venetian blinds appearance of myometrium which may represent adenomyosis. No endometrial mass or fluid. 2. Normal appearing right ovary. No evidence of ovarian torsion. 3. Cannot definitively see arterial flow in left ovary secondary to overlying bowel gas. No gross abnormality is seen in left ovary. Intermittent left ovarian torsion cannot be entirely excluded, suggest clinical correlation and follow-up. No adnexal mass. We strive to produce accurate, complete, and clear reports of imaging services. To assist us in improving patient care, this report was composed using standard report templates and voice recognition software. Therefore, it may contain abnormal punctuation, insertions and/or omissions. Occasional wrong-word or sound-alike substitutions may occur. Though we review the report and make efforts to correct it, we do recommend that the report be read carefully in proper context to recognize any text inaccuracies. Dictated by: Julio Jose M.D. on 07/07/2024 at 18:11 Approved by: Julio Jose M.D. on 07/07/2024 at 18:25
[2024-07-07] MEDS: KETOROLAC 30 MG/ML VIAL 15 MG IV (17:30)
[2024-07-07 17:50] VITALS: PULSE 50; O2SAT 96
[2024-07-07 17:51] VITALS: BP 117/56; PULSE 50; RESP 16; O2SAT 100
[2024-07-07 19:29] VITALS: BP 130/62; PULSE 72; RESP 16; O2SAT 96
== END 2024-07-07 19:31 | disposition home or self-care (01) ==
PROVIDERS: Emergency Medicine; Emergency Provider Student in an Organized Health Care Education/Training Program; PCP Family Medicine
DX: R10.2 Pelvic and perineal pain (principal); R10.30 Lower abdominal pain, unspecified; F31.9 Bipolar disorder, unspecified; Z87.59 Personal history of other complications of pregnancy, childbirth and the puerperium; Z98.890 Other specified postprocedural states
CPT/HCPCS: 36415; 76830; 76856; 80053; 81003; 81025; 83690; 85025; 93975; 96374; 99284; J1885

== ENCOUNTER → 2024-07-26 19:15 | Outpatient (ROUT) | payer OTHER, SELFPAY ==
[2024-07-28 14:39] LABS: Candida species Negative (Negative); Gardnerella vaginalis Positive (Negative); Trichomoas vaginalis Negative (Negative)
== END ==
PROVIDERS: PCP Family Medicine; Visit Provider Student in an Organized Health Care Education/Training Program
DX: N89.8 Other specified noninflammatory disorders of vagina (principal)
CPT/HCPCS: 87480; 87510; 87660

== ENCOUNTER → 2024-11-14 10:30 | Outpatient (CLI) | payer OTHER, SELFPAY | PROVIDERS: PCP Family Medicine; Visit Provider Physician Assistant | DX: R30.0 Dysuria (principal); N94.89 Other specified conditions associated with female genital organs and menstrual cycle | CPT/HCPCS: 87077; 87086; 87210 ==